=== PATIENT | male | born 1995 | race Caucasian/White ===

== ENCOUNTER 2017-11-20 03:00 | Emergency (ER) | payer SELFPAY ==
[2017-11-20] MEDS ORDERED: Ibuprofen TAB* 600 MG PO ONE (04:02)
--- NOTE | 2017-11-20 04:30 | ED ---
Upper Extremity Pain - HPI Summary HPI Summary: Level 5 caveat: Unable to obtain complete HPI due to AMS The pt is a 22 y/o male presenting to [facility] c/o of a R hand injury after punching a dry wall [employer] while intoxicated. He notes redness and swelling but denies any other injuries. - History of Current Complaint Chief Complaint: EDExtremityUpper Stated Complaint: RIGHT HAND INJURY Time Seen by Provider: 11/20/17 03:24 Hx Obtained From: Patient Mechanism Of Injury: Blunt Trauma, Other Onset/Duration: Still Present Pain Location: Hand - Right hand Associated Signs & Symptoms: Positive: Swelling, Redness - Allergies/Home Medications Allergies/Adverse Reactions: Allergies Allergy/AdvReac Type Severity Reaction Status Date / Time No Known Allergies Allergy Verified 11/20/17 03:04 Home Medications: Home Medications NK [No Home Medications Reported] 11/20/17 [History Confirmed 11/20/17] PMH/Surg Hx/FS Hx/Imm Hx Previously Healthy: Yes Sensory History: Denies: Hx Deafness Opthamlomology History: Denies: Hx Legally Blind - Immunization History Immunizations Up to Date: Yes Infectious Disease History: No Infectious Disease History: Denies: Traveled Outside the [place] in Last 30 Days - Family History Known Family History: Positive: Unknown Family History: Unable to obtain - Social History Alcohol Use: Occasionally Substance Use Type: Reports: None Smoking Status (MU): Never Smoked Tobacco - Additional Comments History Additional Comments: Level 5 caveat: Unable to obtain complete PMhx due to AMS Review of Systems - ROS Summary Review of Systems Summary: Level 5 caveat: Unable to obtain complete ROS due to AMS Negative: Fever Positive: Other - Positive: R hand pain and swelling All Other Systems Reviewed And Are Negative: Yes Physical Exam - Summary Physical Exam Summary: Level 5 caveat: Unable to obtain complete PE due to AMS Appearance: Well appearing, no pain distress Skin: warm, dry, reflects adequate perfusion Head/face: normal Eyes: EOMI, VICTORIA ENT: normal Neck: supple, non-tender Respiratory: CTA, breath sounds present Cardiovascular: RRR, pulses symmetrical Abdomen: non-tender, soft Bowel sounds : present Musculoskeletal: mild tenderness of the R hand , strength/ROM intact Neuro: normal, sensory motor intact, A&Ox3 Triage Information Reviewed: Yes Vital Signs On Initial Exam: Initial Vitals Temp Pulse Resp BP Pulse Ox 98.0 F 100 14 127/74 95 11/20/17 03:02 11/20/17 03:02 11/20/17 03:02 11/20/17 03:02 11/20/17 03:02 Vital Signs Reviewed: Yes Diagnostics - Vital Signs Vital Signs Temp Pulse Resp BP Pulse Ox 11/20/17 03:11 95 136/77 96 11/20/17 03:02 98.0 F 100 14 127/74 95 - Laboratory Lab Statement: Any lab studies that have been ordered have been reviewed, and results considered in the medical decision making process. - Radiology R hand X Ray Radiology Interpretation Completed By: ED Physician - IMPRESSION: This is a normal X-ray Course/Dx - Course Course Of Treatment: A 22 year-old M presents to the ED with a CC of L hand injury after punching a wall [employer]. He denies any other injuries. A physical exam revealed mild tenderness of the R hand. A R hand X-ray is unremarkable. In the ED course, pt was given Ibuprofen 600 mg PO which improved the symptoms. Patient will be discharged with a final Dx of contusion and R hand pain with instructions to follow up with his PCP. The pt is agreeable with this plan. Allergies noted. - Diagnoses Differential Diagnosis/HQI/PQRI: Positive: Contusion, Fracture (Closed) Provider Diagnoses: Contusion, Hand pain Discharge - Sign-Out/Discharge Documenting (check all that apply): Patient Departure - DC - Discharge Plan Condition: Improved Disposition: HOME Patient Education Materials: Contusion in Adults (ED) Referrals: Care [facility] [Outside] - 3 Days Additional Instructions: Return to ED for any new or worsening symptoms - Billing Disposition and Condition Condition: IMPROVED Disposition: Home - Attestation Statements Document Initiated by Scribe: Yes Documenting Scribe: Ingrid Spear Provider For Whom Salvador is Documenting (Include Credential): Dr. Abel Bo MD Scribe Attestation: Ingrid Kimble scribed for Dr. Abel Bo MD on 11/20/17 at 2241. Scribe Documentation Reviewed: Yes Provider Attestation: The documentation as recorded by the Ingrid toribio accurately reflects the service I personally performed and the decisions made by me, Dr. Abel Bo MD
[2017-11-20 04:44] VITALS: BP 118/67
--- NOTE | 2017-11-20 07:37 | RAD ---
HISTORY: pain, right hand injury COMPARISONS: None VIEWS: 4 , Frontal, lateral, and oblique views of the right hand FINDINGS: BONE DENSITY: Normal. BONES: There is no displaced fracture. JOINTS: There is no arthropathy. ALIGNMENT: There is no dislocation. SOFT TISSUES: Unremarkable. OTHER FINDINGS: None. IMPRESSION: NO ACUTE OSSEOUS INJURY. IF SYMPTOMS PERSIST, RECOMMEND REPEAT IMAGING. R1
== END 2017-11-20 04:15 | disposition home or self-care (01) ==
LOC: ED 03:00
DX: S60.221A Contusion of right hand, initial encounter (principal); W22.01XA Walked into wall, initial encounter; Y92.9 Unspecified place or not applicable
CPT/HCPCS: 99282; A9270-GY